=== PATIENT | female | born 1990 | race American Indian/Alaskan Native ===

== ENCOUNTER 2018-11-20 14:18 | Observation (INO) | payer OTHER ==
[2018-11-20 15:37] LABS: Eosinophils % (Auto) 0.3 % (0.0-4.3); Monocytes % (Auto) 6.7 % (0.0-7.3)
--- NOTE | 2018-11-20 15:40 | Emergency Department Report ---
ED General Adult HPI - General Chief complaint: Syncope Stated complaint: WEAKNESS/VOMITING Time Seen by Provider: 11/20/18 15:23 Source: patient, RN notes reviewed Mode of arrival: Stretcher Limitations: No Limitations - History of Present Illness Initial comments: This is a 28-year-old female who is not known to this provider previously. The patient does not have a local primary care doctor or local quality nurse. The patient presents to the emergency room today with a complaint of lightheadedness, dizziness, fatigue, malaise, chills, shortness of breath. Symptoms constant, worse with physical exertion, decreased with rest, they're painless, and they do not radiate anywhere. Patient reports typical heavy menstruation at baseline, and reports her most recent menstruation terminated within the past 48 hours. She does not have a private quality nurse currently. She denies hematemesis, bright red blood per rectum. She denies DVT, pulmonary embolus risk factors. -: Gradual Severity scale (0 -10): 0 Consistency: intermittent Improves with: rest Worsens with: movement Associated Symptoms: loss of appetite, malaise, shortness of breath, weakness - Related Data Allergies Allergy/AdvReac Type Severity Reaction Status Date / Time No Known Allergies Allergy Unverified 11/20/18 14:38 ED Review of Systems ROS: Stated complaint: WEAKNESS/VOMITING Other details as noted in HPI Constitutional: malaise, weakness Eyes: denies: eye discharge ENT: denies: epistaxis Respiratory: shortness of breath Cardiovascular: other (near syncope) Gastrointestinal: denies: hematemesis, melena, hematochezia Genitourinary: abnormal menses Musculoskeletal: denies: back pain Neurological: weakness Psychiatric: anxiety ED Past Medical Hx - Past Medical History Previous Medical History?: No - Surgical History Past Surgical History?: No - Social History Smoking Status: Never Smoker Substance Use Type: None ED Physical Exam - General Limitations: No Limitations General appearance: alert, in no apparent distress - Head Head exam: Present: atraumatic, normocephalic - Eye Eye exam: Present: normal appearance, EOMI. Absent: nystagmus - ENT ENT exam: Present: normal exam, normal orophraynx, mucous membranes moist, normal external ear exam - Neck Neck exam: Present: normal inspection, full ROM. Absent: tenderness, meningismus - Respiratory Respiratory exam: Present: normal lung sounds bilaterally. Absent: respiratory distress - Cardiovascular Cardiovascular Exam: Present: regular rate, normal rhythm, tachycardia, normal heart sounds. Absent: bradycardia, irregular rhythm, systolic murmur, diastolic murmur, rubs, gallop - GI/Abdominal GI/Abdominal exam: Present: soft. Absent: distended, tenderness, guarding, rebound, rigid, pulsatile mass - Extremities Exam Extremities exam: Present: normal inspection, full ROM, other (2+ pulses noted in the bilateral upper, lower extremities. Compartments soft. No long bony tenderness. The pelvis is stable.). Absent: pedal edema, calf tenderness - Back Exam Back exam: Present: normal inspection, full ROM. Absent: tenderness, CVA tenderness (R), paraspinal tenderness, vertebral tenderness - Neurological Exam Neurological exam: Present: alert, oriented X3, CN II-XII intact, other (Extraocular movements intact. Tongue midline. No facial droop. Facial se nsation intact to light touch in the V1, V2, V3 distribution bilaterally. 5 and 5 strength in 4 extremities.. Sensation is intact to light touch in 4 extremities.). Absent: motor sensory deficit - Psychiatric Psychiatric exam: Present: normal affect, normal mood - Skin Skin exam: Present: warm, pallor ED Course Vital Signs 11/20/18 11/20/18 14:23 15:50 Temperature 98.7 F Pulse Rate 108 H Respiratory 16 20 Rate Blood Pressure 122/95 [Left] O2 Sat by Pulse 100 100 Oximetry - Reevaluation(s) Reevaluation #1: 11/20/18 18:51 Change in plans. patient started to have vaginal bleeding after her ultrasound. Dr Melgoza advises gynecologic admission. Recontact the quality nurse employee communications coordinator, Dr. Garcia, who will admit the patient ED Medical Decision Making - Lab Data Result diagrams: 11/20/18 14:50 11/20/18 14:50 Vital Signs 11/20/18 11/20/18 14:23 15:50 Temperature 98.7 F Pulse Rate 108 H Respiratory 16 20 Rate Blood Pressure 122/95 [Left] O2 Sat by Pulse 100 100 Oximetry Vital Signs 11/20/18 11/20/18 14:23 15:50 Temperature 98.7 F Pulse Rate 108 H Respiratory 16 20 Rate Blood Pressure 122/95 [Left] O2 Sat by Pulse 100 100 Oximetry Lab Results 11/20/18 11/20/18 11/20/18 Range/Units 14:50 14:50 14:50 WBC 12.1 H (4.5-11.0) K/mm3 RBC 3.20 L (3.65-5.03) M/mm3 Hgb 3.9 L* (10.1-14.3) gm/dl Hct 15.2 L* (30.3-42.9) % MCV < 50 L (79-97) fl MCH 12 L (28-32) pg MCHC 25 L (30-34) % RDW 24.3 H (13.2-15.2) % Plt Count 282 (140-440) K/mm3 [place] % (Auto) 6.7 (0.0-7.3) % Eos % (Auto) 0.3 (0.0-4.3) % Eos # 0.0 (0.0-0.4) K/mm3 Add Manual Diff Complete Total Counted 100 Seg Neutrophils % 82.3 H (40.0-70.0) % Seg Neuts % (Manual) 88.0 H (40.0-70.0) % Band Neutrophils % 0 % Lymphocytes % (Manual) 4.0 L (13.4-35.0) % Reactive Lymphs % (Man) 0 % Monocytes % (Manual) 6.0 (0.0-7.3) % Eosinophils % (Manual) 1.0 (0.0-4.3) % Basophils % (Manual) 1.0 (0.0-1.8) % Metamyelocytes % 0 % Myelocytes % 0 % Promyelocytes % 0 % Blast Cells % 0 % Nucleated RBC % 1.0 H (0.0-0.9) % Seg Neutrophils # 9.9 H (1.8-7.7) K/mm3 Seg Neutrophils # Man 10.6 H (1.8-7.7) K/mm3 Band Neutrophils # 0.0 K/mm3 Lymphocytes # (Manual) 0.5 L (1.2-5.4) K/mm3 Abs React Lymphs (Man) 0.0 K/mm3 Monocytes # (Manual) 0.7 (0.0-0.8) K/mm3 Eosinophils # (Manual) 0.1 (0.0-0.4) K/mm3 Basophils # (Manual) 0.1 (0.0-0.1) K/mm3 Metamyelocytes # 0.0 K/mm3 Myelocytes # 0.0 K/mm3 Promyelocytes # 0.0 K/mm3 Blast Cells # 0.0 K/mm3 WBC Morphology Not Reportable Hypersegmented Neuts Not Reportable Hyposegmented Neuts Not Reportable Hypogranular Neuts Not Reportable Smudge Cells Not Reportable Toxic Granulation Not Reportable Toxic Vacuolation Not Reportable Dohle Bodies Not Reportable Pelger-Huet Anomaly Not Reportable Dao Rods Not Reportable Platelet Estimate Appears normal Clumped Platelets Not Reportable Plt Clumps, EDTA Not Reportable Large Platelets Few Giant Platelets Few Platelet Satelliting Not Reportable Plt Morphology Comment Not Reportable RBC Morphology Not Reportable Dimorphic RBCs Not Reportable Polychromasia 1+ Hypochromasia 3+ Poikilocytosis 1+ Anisocytosis 2+ Microcytosis 3+ Macrocytosis Not Reportable Spherocytes Not Reportable Pappenheimer Bodies Not Reportable Sickle Cells Not Reportable Target Cells Not Reportable Tear Drop Cells Not Reportable Ovalocytes Few Helmet Cells Not Reportable [place] Bodies Not Reportable [place] Rings Not Reportable [place] Cells Not Reportable Bite Cells Not Reportable Crenated Cell Not Reportable Elliptocytes Not Reportable Acanthocytes (Spur) Not Reportable Rouleaux Not Reportable Hemoglobin C Crystals Not Reportable Schistocytes Not Reportable Malaria parasites Not Reportable Balbir Bodies Not Reportable Hem Pathologist Commnt No Sodium 142 (137-145) mmol/L Potassium 4.1 (3.6-5.0) mmol/L Chloride 104.0 (98-107) mmol/L Carbon Dioxide 24 (22-30) mmol/L Anion Gap 18 mmol/L BUN 12 (7-17) mg/dL Creatinine 0.7 (0.7-1.2) mg/dL Estimated GFR > 60 ml/min BUN/Creatinine Ratio 17 % Glucose 113 H (65-100) mg/dL Calcium 9.0 (8.4-10.2) mg/dL Magnesium (1.7-2.3) mg/dL Total Creatine Kinase (30-135) units/L HCG, Qual (Negative) Blood Type O POSITIVE Antibody Screen Negative Crossmatch See Detail 11/20/18 11/20/18 Range/Units 14:50 16:01 WBC (4.5-11.0) K/mm3 RBC (3.65-5.03) M/mm3 Hgb (10.1-14.3) gm/dl Hct (30.3-42.9) % MCV (79-97) fl MCH (28-32) pg MCHC (30-34) % RDW (13.2-15.2) % Plt Count (140-440) K/mm3 [place] % (Auto) (0.0-7.3) % Eos % (Auto) (0.0-4.3) % Eos # (0.0-0.4) K/mm3 Add Manual Diff Total Counted Seg Neutrophils % (40.0-70.0) % Seg Neuts % (Manual) (40.0-70.0) % Band Neutrophils % % Lymphocytes % (Manual) (13.4-35.0) % Reactive Lymphs % (Man) % Monocytes % (Manual) (0.0-7.3) % Eosinophils % (Manual) (0.0-4.3) % Basophils % (Manual) (0.0-1.8) % Metamyelocytes % % Myelocytes % % Promyelocytes % % Blast Cells % % Nucleated RBC % (0.0-0.9) % Seg Neutrophils # (1.8-7.7) K/mm3 Seg Neutrophils # Man (1.8-7.7) K/mm3 Band Neutrophils # K/mm3 Lymphocytes # (Manual) (1.2-5.4) K/mm3 Abs React Lymphs (Man) K/mm3 Monocytes # (Manual) (0.0-0.8) K/mm3 Eosinophils # (Manual) (0.0-0.4) K/mm3 Basophils # (Manual) (0.0-0.1) K/mm3 Metamyelocytes # K/mm3 Myelocytes # K/mm3 Promyelocytes # K/mm3 Blast Cells # K/mm3 WBC Morphology Hypersegmented Neuts Hyposegmented Neuts Hypogranular Neuts Smudge Cells Toxic Granulation Toxic Vacuolation Dohle Bodies Pelger-Huet Anomaly Dao Rods Platelet Estimate Clumped Platelets Plt Clumps, EDTA Large Platelets Giant Platelets Platelet Satelliting Plt Morphology Comment RBC Morphology Dimorphic RBCs Polychromasia Hypochromasia Poikilocytosis Anisocytosis Microcytosis Macrocytosis Spherocytes Pappenheimer Bodies Sickle Cells Target Cells Tear Drop Cells Ovalocytes Helmet Cells [place] Bodies [place] Rings Fannie Cells Bite Cells Crenated Cell Elliptocytes Acanthocytes (Spur) Rouleaux Hemoglobin C Crystals Schistocytes Malaria parasites Balbir Bodies Hem Pathologist Commnt Sodium (137-145) mmol/L Potassium (3.6-5.0) mmol/L Chloride (98-107) mmol/L Carbon Dioxide (22-30) mmol/L Anion Gap mmol/L BUN (7-17) mg/dL Creatinine (0.7-1.2) mg/dL Estimated GFR ml/min BUN/Creatinine Ratio % Glucose (65-100) mg/dL Calcium (8.4-10.2) mg/dL Magnesium 2.20 (1.7-2.3) mg/dL Total Creatine Kinase 65 (30-135) units/L HCG, Qual Negative (Negative) Blood Type Antibody Screen Crossmatch - EKG Data Rate: tachycardia - EKG Data When compared to previous EKG there are: previous EKG unavailable - Radiology Data Radiology results: pending - Medical Decision Making Differential diagnosis, including not limited to: Symptomatic anemia, menorrhagia, Assessment and plan: 28-year-old female with symptomatically anemia, likely secondary to vaginal bleeding, now resolved. Patient is afebrile but tachycardic. She is hemodynamically stable. She is amenable to packed red blood cell transfusion. Case discussed with gynecology on-call, Dr Garcia, who recommended packed red blood cell transfusion, and indicated no need to admit to gynecologic service, but indicated that medical service would be suitable to admit the patient, and that her group could follow in consultation if necessary. Discussed this with the patient to verbalize understanding. The Hospital physician, Dr. Melgoza is going to admit the patient Critical Care Time: Yes Critical care time in (mins) excluding proc time.: 35 Critical care attestation.: If time is entered above; I have spent that time in minutes in the direct care of this critically ill patient, excluding procedure time. ED Disposition Clinical Impression: Symptomatic anemia Disposition: OP ADMIT IP TO THIS HOSP Is pt being admited?: Yes Does the pt Need Aspirin: No Condition: Good [facility] [Primary Care Provider] - 3-5 Days
[2018-11-20 15:52] LABS: BUN/Creatinine Ratio 17; Blood Urea Nitrogen 12 mg/dL (7-17); Hemolysis Index 3
[2018-11-20 15:53] LABS: Hematocrit 15.2 % (30.3-42.9); Hemoglobin 3.9 gm/dl (10.1-14.3); Mean Corpuscular HGB Conc 25 % (30-34); Mean Corpuscular Volume < 50 fl (79-97)
[2018-11-20 15:54] LABS: Platelet Count 282 K/mm3 (140-440); Red Cell Distribution Width 24.3 % (13.2-15.2)
[2018-11-20] MEDS ORDERED: NACL 0.9% 500 ML 500 ML IV ONE (16:02)
[2018-11-20] MEDS ORDERED: NACL 0.9% 1000 ML 1,000 ML IV ONE (16:34)
[2018-11-20 16:55] LABS: Total Cells Counted 100
[2018-11-20 16:56] LABS: Anisocytosis 2+; Poikilocytosis 1+
[2018-11-20 16:57] LABS: Hypochromasia 3+; Large Platelets Few
[2018-11-20 16:58] LABS: Giant Platelets Few; Ovalocytes Few
--- NOTE | 2018-11-20 19:52 | Ultrasound Report ---
PROCEDURE: US TRANSVAGINAL HISTORY: vaginal bleeding FINDINGS: Real-time ultrasound of the pelvis was performed by transabdominal and endovaginal techniqu e. The uterus measures 10.3 x 4.7 x 5.0 cm. The endometrial stripe measures 1.7 cm which is mildly thick ened. The right ovary measures 4.6 x 2.6 x 2.1 cm and contains a cyst measuring 4.3 x 4.1 x 4.9 cm. The left ovary measures 4.6 x 1.8 x 3.3 cm and contains a cyst measuring 2.5 x 1.8 x 1.3 cm. There is no evidence of ovarian torsion. IMPRESSION: Bilateral ovarian cysts, likely physiologic No evidence of ovarian torsion Thickened endometrial stripe This document is electronically signed by Simone Cordova MD., November 20 2018 07:49:58 PM ET
--- NOTE | 2018-11-20 19:52 | Ultrasound Report ---
PROCEDURE: US PELVIS DUPLEX DOPPLER COMP HISTORY: vaginal bleeding FINDINGS: Real-time ultrasound of the pelvis was performed by transabdominal and endovaginal techniqu e. The uterus measures 10.3 x 4.7 x 5.0 cm. The endometrial stripe measures 1.7 cm which is mildly thick ened. The right ovary measures 4.6 x 2.6 x 2.1 cm and contains a cyst measuring 4.3 x 4.1 x 4.9 cm. The left ovary measures 4.6 x 1.8 x 3.3 cm and contains a cyst measuring 2.5 x 1.8 x 1.3 cm. There is no evidence of ovarian torsion. IMPRESSION: Bilateral ovarian cysts, likely physiologic No evidence of ovarian torsion Thickened endometrial stripe This document is electronically signed by Simone Cordova MD., November 20 2018 07:49:27 PM ET
[2018-11-20] MEDS ORDERED: TYLENOL PO PRN ×2 (22:29→22:32)
[2018-11-20] MEDS ORDERED: LACTATED RINGERS 1,000 ML IV SCH (23:00)
--- NOTE | 2018-11-21 01:00 | History and Physical Report ---
History of Present Illness Date of examination: 11/21/18 Date of admission: 11/20/18 18:53 Chief complaint: Symptomatic anemia History of present illness: Patient is a 28 year old , LMP 3 weeks ago who presented to the ER complaining of having dizziness, SOB, weakness and tiredness for several weeks. She has a history of heavy periods with clots which last 5 days. She denied any weight loss, change in appetite or bowel habits. She denied any bleeding on admission. Her vitals sign showed tachycardia. H/H was 3.9/15. She was admitted to the medical service but she reported that she started to bleed mildly after the sonogram. The hospitalist transferred her to the gynecology service. She has not seen a electric range assembler for this problem. Past History Past Surgical History: no surgical history Social history: no significant social history Medications and Allergies Allergies Allergy/AdvReac Type Severity Reaction Status Date / Time No Known Allergies Allergy Verified 11/20/18 22:31 Active Meds: Active Medications Acetaminophen (Tylenol) 650 mg PO Q6H PRN PRN Reason: Pain, Mild (1-3) Lactated Ringer's (Lactated Ringers) 1,000 mls @ 125 mls/hr IV DIRECT RENAE - Vital Signs Vital signs: Vital Signs Temp Pulse Resp BP Pulse Ox 98.7 F 108 H 16 122/95 100 11/20/18 14:23 11/20/18 14:23 11/20/18 14:23 11/20/18 14:23 11/20/18 14:23 Temp Pulse Resp BP Pulse Ox 99.8 F H 94 H 18 121/56 100 11/21/18 00:11 11/21/18 00:11 11/21/18 00:11 11/21/18 00:11 11/21/18 00:11 - Physical Exam Cardiovascular: Normal S1, Normal S2 Lungs: Positive: Clear to auscultation Vulva: both: normal Vagina: Positive: other (Mild bleeding, no lesion.) Cervix: Positive: other (Mild bleeding from the os, no gross lesion.) Adnexa: both: normal Deep Tendon Reflex Grade: Normal +2 Results Result Diagrams: 11/21/18 01:54 11/20/18 14:50 Abnormal lab results 03/01/19 03/01/19 03/01/19 Range/Units 14:50 14:50 14:50 WBC 12.1 H (4.5-11.0) K/mm3 RBC 3.20 L (3.65-5.03) M/mm3 Hgb 3.9 L* (10.1-14.3) gm/dl Hct 15.2 L* (30.3-42.9) % MCV < 50 L (79-97) fl MCH 12 L (28-32) pg MCHC 25 L (30-34) % RDW 24.3 H (13.2-15.2) % Seg Neutrophils % 82.3 H (40.0-70.0) % Seg Neuts % (Manual) 88.0 H (40.0-70.0) % Lymphocytes % (Manual) 4.0 L (13.4-35.0) % Nucleated RBC % 1.0 H (0.0-0.9) % Seg Neutrophils # 9.9 H (1.8-7.7) K/mm3 Seg Neutrophils # Man 10.6 H (1.8-7.7) K/mm3 Lymphocytes # (Manual) 0.5 L (1.2-5.4) K/mm3 Glucose 113 H (65-100) mg/dL Crossmatch See Detail All other labs normal. Assessment and Plan - Patient Problems (1) Symptomatic anemia Current Visit: Yes Status: Acute Plan to address problem: Will transfuse 2 PRBCs to bring H/H to a stable level. F/U H/H 3 hrs after last unit. (2) Menometrorrhagia Current Visit: Yes Status: Acute Plan to address problem: The bleeding is very mild at this time. Thickened endometrium on sonogram. I told her that endometrial pathology must be ruled out. Once her Hb is stable, she will be discharged with instructions to follow with a state attorney for hysterscopy/D&C. (3) Morbid obesity Current Visit: Yes Status: Acute
[2018-11-21 02:08] LABS: Mean Corpuscular HGB Conc 29 % (30-34); Platelet Count 210 K/mm3 (140-440); Red Blood Count 3.37 M/mm3 (3.65-5.03)
[2018-11-21 02:58] LABS: Mean Corpuscular Volume 57 fl (79-97); Red Cell Distribution Width > 40.0 % (13.2-15.2)
[2018-11-21 02:59] LABS: Hematocrit 19.2 % (30.3-42.9); Hemoglobin 5.5 gm/dl (10.1-14.3)
[2018-11-21] MEDS ORDERED: NACL 0.9% 500 ML 500 ML IV ONE ×2 (03:37→03:42)
--- NOTE | 2018-11-21 04:34 | Event Note ---
Date: 11/21/18 Patient recieved 2 units of PRBSs. Her current H/H: 5.5/.2. Will transfuse 1 FFP and 2 more units of PRBCs.
[2018-11-21] MEDS ORDERED: NACL 0.9% 250ML 250 ML ONE (11:20)
[2018-11-22 00:28] LABS: Hematocrit 25.9 % (30.3-42.9); Mean Corpuscular HGB Conc 31 % (30-34); Red Blood Count 4.08 M/mm3 (3.65-5.03)
[2018-11-22 00:33] LABS: Mean Corpuscular Volume 64 fl (79-97)
[2018-11-22 00:34] LABS: Platelet Count 198 K/mm3 (140-440)
--- NOTE | 2018-11-22 10:35 | Progress Note ---
Assessment and Plan - Patient Problems (1) Menometrorrhagia Onset Date: 11/22/18 Current Visit: Yes Status: Chronic (2) Morbid obesity Onset Date: 11/22/18 Current Visit: Yes Status: Chronic (3) Symptomatic anemia Onset Date: 11/22/18 Current Visit: Yes Status: Resolved Plan to address problem: A: Symptomatic anemia - resolved Menometrorrhagia - improved Obesity P: May go home today Follow up in the office to schedule a Hysteroscopy with D&C Subjective - Subjective Date of service: 11/22/18 Principal diagnosis: Symptomatic anemia; Menorrhagia Interval history: Pt is feeling much better this morning, and bleeding is minimal. Patient reports: appetite normal, voiding normally, pain well controlled, flatus, ambulating normally, no dizzy ambulation, no nauseated Objective - Vital Signs Latest vital signs: Vital Signs Temp Pulse Resp BP BP Pulse Ox 11/22/18 08:46 98.4 F 82 20 131/73 99 11/21/18 23:33 98.2 F 91 H 18 142/57 100 11/21/18 19:33 99.4 F 92 H 18 127/61 100 11/21/18 19:00 98.8 F 91 H 18 151/68 100 11/21/18 18:20 99.0 F 94 H 18 148/61 99 11/21/18 18:00 99.2 F 99 H 18 156/67 99 11/21/18 17:30 97 H 18 149/68 11/21/18 17:13 99.2 F 93 H 18 158/76 99 11/21/18 16:54 99.0 F 104 H 18 144/69 99 11/21/18 16:24 111 H 18 161/75 99 11/21/18 15:55 97 H 18 142/46 99 11/21/18 15:24 99.0 F 101 H 18 150/79 100 11/21/18 15:18 98.8 F 96 H 18 144/72 99 11/21/18 15:04 99.1 F 102 H 18 143/65 99 11/21/18 14:30 99.0 F 97 H 18 142/75 99 11/21/18 14:00 98.9 F 100 H 18 145/76 100 11/21/18 13:30 99.0 F 102 H 18 142/79 99 11/21/18 13:00 99.0 F 100 H 18 145/75 99 11/21/18 12:26 98.8 F 94 H 18 157/83 100 11/21/18 11:51 98.8 F 98 H 18 137/38 100 11/21/18 11:22 99.1 F 90 18 144/71 100 Intake and Output 11/21/18 11/22/18 11/22/18 22:59 06:59 14:59 Intake Total 490 360 360 Balance 490 360 360 Intake: Oral 240 360 Intake, Free Water 360 Blood Product 250 Leukoreduced Red Blood 0 Cells Unit [id number] Leukoreduced Red Blood 250 Cells Unit [id number] Other: Total, Intake Amount 240 240 Voiding Method Toilet # Voids Void 1 1 1 # Bowel Movements 1 - Exam Abdomen: Present: normal appearance, soft Uterus: Present: normal - Labs Labs: Abnormal lab results 11/20/18 11/22/18 Range/Units 14:50 00:09 Hgb 8.0 L (10.1-14.3) gm/dl Hct 25.9 L D (30.3-42.9) % MCV 64 L (79-97) fl MCH 20 L (28-32) pg Crossmatch See Detail Laboratory Tests 11/20/18 11/20/18 11/20/18 14:50 14:50 14:50 WBC 12.1 H RBC 3.20 L Hgb 3.9 L* Hct 15.2 L* MCV < 50 L MCH 12 L MCHC 25 L RDW 24.3 H Plt Count 282 [place] % (Auto) 6.7 Eos % (Auto) 0.3 Eos # 0.0 Add Manual Diff Complete Total Counted 100 Seg Neutrophils % 82.3 H Seg Neuts % (Manual) 88.0 H Band Neutrophils % 0 Lymphocytes % (Manual) 4.0 L Reactive Lymphs % (Man) 0 Monocytes % (Manual) 6.0 Eosinophils % (Manual) 1.0 Basophils % (Manual) 1.0 Metamyelocytes % 0 Myelocytes % 0 Promyelocytes % 0 Blast Cells % 0 Nucleated RBC % 1.0 H Seg Neutrophils # 9.9 H Seg Neutrophils # Man 10.6 H Band Neutrophils # 0.0 Lymphocytes # (Manual) 0.5 L Abs React Lymphs (Man) 0.0 Monocytes # (Manual) 0.7 Eosinophils # (Manual) 0.1 Basophils # (Manual) 0.1 Metamyelocytes # 0.0 Myelocytes # 0.0 Promyelocytes # 0.0 Blast Cells # 0.0 WBC Morphology Not Reportable Hypersegmented Neuts Not Reportable Hyposegmented Neuts Not Reportable Hypogranular Neuts Not Reportable Smudge Cells Not Reportable Toxic Granulation Not Reportable Toxic Vacuolation Not Reportable Dohle Bodies Not Reportable Pelger-Huet Anomaly Not Reportable Dao Rods Not Reportable Platelet Estimate Appears normal Clumped Platelets Not Reportable Plt Clumps, EDTA Not Reportable Large Platelets Few Giant Platelets Few Platelet Satelliting Not Reportable Plt Morphology Comment Not Reportable RBC Morphology Not Reportable Dimorphic RBCs Not Reportable Polychromasia 1+ Hypochromasia 3+ Poikilocytosis 1+ Anisocytosis 2+ Microcytosis 3+ Macrocytosis Not Reportable Spherocytes Not Reportable Pappenheimer Bodies Not Reportable Sickle Cells Not Reportable Target Cells Not Reportable Tear Drop Cells Not Reportable Ovalocytes Few Helmet Cells Not Reportable [place] Bodies Not Reportable [place] Rings Not Reportable [place] Cells Not Reportable Bite Cells Not Reportable Crenated Cell Not Reportable Elliptocytes Not Reportable Acanthocytes (Spur) Not Reportable Rouleaux Not Reportable Hemoglobin C Crystals Not Reportable Schistocytes Not Reportable Malaria parasites Not Reportable Balbir Bodies Not Reportable Hem Pathologist Commnt No Sodium 142 Potassium 4.1 Chloride 104.0 Carbon Dioxide 24 Anion Gap 18 BUN 12 Creatinine 0.7 Estimated GFR > 60 BUN/Creatinine Ratio 17 Glucose 113 H Calcium 9.0 Magnesium Total Creatine Kinase TSH Free T4 HCG, Qual Blood Type O POSITIVE Antibody Screen Negative Crossmatch See Detail 11/20/18 11/20/18 11/21/18 14:50 16:01 01:54 WBC 11.3 H RBC 3.37 L Hgb 5.5 L* Hct 19.2 L* MCV 57 L MCH 16 L MCHC 29 L RDW > 40.0 H Plt Count 210 [place] % (Auto) Eos % (Auto) Eos # Add Manual Diff Total Counted Seg Neutrophils % Seg Neuts % (Manual) Band Neutrophils % Lymphocytes % (Manual) Reactive Lymphs % (Man) Monocytes % (Manual) Eosinophils % (Manual) Basophils % (Manual) Metamyelocytes % Myelocytes % Promyelocytes % Blast Cells % Nucleated RBC % Seg Neutrophils # Seg Neutrophils # Man Band Neutrophils # Lymphocytes # (Manual) Abs React Lymphs (Man) Monocytes # (Manual) Eosinophils # (Manual) Basophils # (Manual) Metamyelocytes # Myelocytes # Promyelocytes # Blast Cells # WBC Morphology Hypersegmented Neuts Hyposegmented Neuts Hypogranular Neuts Smudge Cells Toxic Granulation Toxic Vacuolation Dohle Bodies Pelger-Huet Anomaly Dao Rods Platelet Estimate Clumped Platelets Plt Clumps, EDTA Large Platelets Giant Platelets Platelet Satelliting Plt Morphology Comment RBC Morphology Dimorphic RBCs Polychromasia Hypochromasia Poikilocytosis Anisocytosis Microcytosis Macrocytosis Spherocytes Pappenheimer Bodies Sickle Cells Target Cells Tear Drop Cells Ovalocytes Helmet Cells [place] Bodies [place] Rings [place] Cells Bite Cells Crenated Cell Elliptocytes Acanthocytes (Spur) Rouleaux Hemoglobin C Crystals Schistocytes Malaria parasites Balbir Bodies Hem Pathologist Commnt Sodium Potassium Chloride Carbon Dioxide Anion Gap BUN Creatinine Estimated GFR BUN/Creatinine Ratio Glucose Calcium Magnesium 2.20 Total Creatine Kinase 65 TSH Free T4 HCG, Qual Negative Blood Type Antibody Screen Crossmatch 11/21/18 11/21/18 11/22/18 01:54 01:54 00:09 WBC 10.9 RBC 4.08 Hgb 8.0 L Hct 25.9 L D MCV 64 L MCH 20 L MCHC 31 RDW Plt Count 198 [place] % (Auto) Eos % (Auto) Eos # Add Manual Diff Total Counted Seg Neutrophils % Seg Neuts % (Manual) Band Neutrophils % Lymphocytes % (Manual) Reactive Lymphs % (Man) Monocytes % (Manual) Eosinophils % (Manual) Basophils % (Manual) Metamyelocytes % Myelocytes % Promyelocytes % Blast Cells % Nucleated RBC % Seg Neutrophils # Seg Neutrophils # Man Band Neutrophils # Lymphocytes # (Manual) Abs React Lymphs (Man) Monocytes # (Manual) Eosinophils # (Manual) Basophils # (Manual) Metamyelocytes # Myelocytes # Promyelocytes # Blast Cells # WBC Morphology Hypersegmented Neuts Hyposegmented Neuts Hypogranular Neuts Smudge Cells Toxic Granulation Toxic Vacuolation Dohle Bodies Pelger-Huet Anomaly Dao Rods Platelet Estimate Clumped Platelets Plt Clumps, EDTA Large Platelets Giant Platelets Platelet Satelliting Plt Morphology Comment RBC Morphology Dimorphic RBCs Polychromasia Hypochromasia Poikilocytosis Anisocytosis Microcytosis Macrocytosis Spherocytes Pappenheimer Bodies Sickle Cells Target Cells Tear Drop Cells Ovalocytes Helmet Cells [place] Bodies [place] Rings [place] Cells Bite Cells Crenated Cell Elliptocytes Acanthocytes (Spur) Rouleaux Hemoglobin C Crystals Schistocytes Malaria parasites Balbir Bodies Hem Pathologist Commnt Sodium Potassium Chloride Carbon Dioxide Anion Gap BUN Creatinine Estimated GFR BUN/Creatinine Ratio Glucose Calcium Magnesium Total Creatine Kinase TSH 1.530 Free T4 1.00 HCG, Qual Blood Type Antibody Screen Crossmatch
--- NOTE | 2018-11-22 10:42 | Discharge Summary ---
Providers - Providers Date of Admission: 11/20/18 18:53 Date of discharge: 11/22/18 Attending physician: TERRI ALLEN MD 11/20/18 16:35 Consult to Physician [CONS] Urgent Comment: DR ALLEN NOTIFIED [id number] Consulting Provider: TERRI ALLEN Physician Instructions: Reason For Exam: bleeding [facility] Reason for admission: other (Symptomatic anemia - stable; Menometrorrhagia) Procedure: other (Blood transfusion) Other procedures: none complications: none Discharge diagnosis: other (Symptomatic anemia - resolved; Menometrorrhagia - improved) Hospital course: Patient is a 28 year old BF , LMP 3 weeks ago who presented to the ER complaining of having dizziness, SOB, weakness and tiredness for several weeks. She has a history of heavy periods with clots which last 5 days. She denied any weight loss, change in appetite or bowel habits. She denied any bleeding on admission. Her vitals sign showed tachycardia. H/H was 3.9/15.2 She was admitted to the medical service but she reported that she started to bleed mildly after the sonogram. The hospitalist transferred her to the gynecology service. She has not seen a band cutter for this problem. She received 4 units of blood and 1 unit of FFP and her H/H improved to 8.0/25.9 She is currently feeling much better, and her bleeding has resolved. She will therefore be discharged to home today with plans to follow up in the office for further evaluation and treatment - including a Hysteroscopy with D&C. Condition at discharge: Good Disposition: DC-01 TO HOME OR SELFCARE - Discharge Diagnoses (1) Menometrorrhagia Status: Chronic (2) Morbid obesity Status: Chronic (3) Symptomatic anemia Status: Resolved Plan - Discharge Medications Prescriptions: Ferrous Sulfate [Feosol 325 MG tab] 325 mg PO BID #60 tablet - Provider Discharge Summary Activity: routine, no sex for 6 weeks, no heavy lifting 4 weeks, no strenuous exercise Diet: routine Instructions: routine Additional instructions: [] Smoking cessation referral if applicable(refer to patient education folder for contact #) [] Refer to [facility] Booklet Call your doctor immediately for: * Fever > 100.5 * Heavy vaginal bleeding ( >1 pad per hour) * Severe persistent headache * Shortness of breath * Reddened, hot, painful area to leg or breast * Drainage or odor from incision. * Keep incision clean and dry at all times and follow doctor's instructions regarding bathing/showering - Follow up plan Follow up: MILES BAKER MD [Primary Care Provider] - 3-5 Days SANDRA TELLEZ MD [Staff Physician] - 7 Days
[2018-11-22 17:00] VITALS: BP 139/50
== END 2018-11-22 17:30 | disposition home or self-care (01) ==
LOC: ED 14:18 → OB 18:53
PROVIDERS: ADMIT Obstetrics & Gynecology; ATTEND Obstetrics & Gynecology
DX: D64.9 Anemia, unspecified (principal); N92.1 Excessive and frequent menstruation with irregular cycle; E66.01 Morbid (severe) obesity due to excess calories; R42 Dizziness and giddiness
CPT/HCPCS: 36415; 36430; 76830; 80048; 82550; 83735; 84439; 84443; 84703; 85007; 85025; 85027; 86850; 86900; 86901; 86920; 93005; 93010; 93975; 96360; 96361; 99291; G0378; J7030; J7040; J7050; J7120; P9016; P9017

== ENCOUNTER 2018-12-22 09:18 | Day surgery (SDC) | payer OTHER ==
[2018-12-21 09:45] LABS: Hematocrit 36.4 % (30.3-42.9); Hemoglobin 11.7 gm/dl (10.1-14.3); Mean Corpuscular HGB Conc 32 % (30-34); Mean Corpuscular Volume 71 fl (79-97); Red Blood Count 5.17 M/mm3 (3.65-5.03)
[2018-12-21 09:47] LABS: Red Cell Distribution Width 33.7 % (13.2-15.2)
--- NOTE | 2018-12-21 10:40 | Anesthesia Consultation ---
Anesthesia Consult and Med Hx - Airway Anesthetic Teeth Evaluation: Good ROM Head & Neck: Adequate Mental/Hyoid Distance: Adequate Mallampati Class: Class II Intubation Access Assessment: Good - Cardiac Exam Cardiac Exam: RRR - Pre-Operative Health Status ASA Pre-Surgery Classification: ASA3 Proposed Anesthetic Plan: General - Central Nervous System Hx Psychiatric Problems: No - Hematic Hx Anemia: Yes - Other Systems Hx Alcohol Use: Yes (Occas) Hx Cancer: No
[2018-12-21 11:01] LABS: Basophils % (Manual) 0 % (0.0-1.8); Eosinophils % (Manual) 0 % (0.0-4.3); Total Cells Counted 100
[2018-12-21 11:02] LABS: Platelet Count 176 K/mm3 (140-440); Platelet Estimate Consistent w Auto; Poikilocytosis Few
[~2018-12-22 09:18] MED LIST: LACTATED RINGERS 1,000 ML IV SCH
[2018-12-22] MEDS ORDERED: SUBLIMAZE ONE (09:26)
[2018-12-22] MEDS ORDERED: DIPRIVAN 10 MG/ML IV ONE (09:26)
[2018-12-22] MEDS ORDERED: XYLOCAINE MPF 2% ONE (09:26)
[2018-12-22] MEDS ORDERED: NARCAN 0.4 MG/1 ML IV PRN (10:04)
[2018-12-22] MEDS ORDERED: SUBLIMAZE IV PRN (10:04)
[2018-12-22] MEDS ORDERED: DEMEROL IV PRN (10:04)
[2018-12-22] MEDS ORDERED: ZOFRAN IV PRN (10:04)
[2018-12-22] MEDS ORDERED: SILVER NITRATE TP ONE (10:04)
[2018-12-22] MEDS ORDERED: DILAUDID IV PRN (10:04)
--- NOTE | 2018-12-22 10:04 | Anesthesia Day of Surgery ---
Anesthesia Day of Surgery - Day of Surgery Patient Examined: Yes Patient H&P Reviewed: Yes Patient is NPO: Yes Beta Blockers: No Cardiac Clearance: No Pulmonary Clearance: No
--- NOTE | 2018-12-22 10:53 | Short Stay Summary ---
Short Stay Documentation Date of service: 12/22/18 Narrative H&P: Pt is a 28yo BF G0 LMP 11/20/18 presents for hysteroscopy and D&C. She was recently hospitalized for symptomatic anemia, and was transfused 4 units of blood. A pelvic ultrasound showed an enlarged uterus measuring 10.3 x 4.7 x 5.0 cm with mildly thickened endometrium. - History Principal diagnosis: Menorrhagia H&P: obtained from office Past Medical History: other (morbid obesity) Past Surgical History: No surgical history Social history: no significant social history, single - Allergies and Medications Current Medications: Allergies No Known Allergies Allergy (Verified 12/18/18 10:00) Home Medications Medication Instructions Recorded Confirmed Last Taken Type Ferrous Sulfate [Feosol 325 MG tab] 325 mg PO BID #60 tablet 11/22/18 12/22/18 12/21/18 Rx Active Medications Fentanyl (Sublimaze) 50 mcg IV Q5MIN PRN PRN Reason: Pain , Severe (7-10) Stop: 12/22/18 20:00 Hydromorphone HCl (Dilaudid) 0.5 mg IV Q10MIN PRN PRN Reason: Pain , Severe (7-10) Stop: 12/22/18 20:00 Lactated Ringer's (Lactated Ringers) 1,000 mls @ 42 mls/hr IV DIRECT RENAE Meperidine HCl (Demerol) 25 mg IV ONCE PRN PRN Reason: Shivering Stop: 12/22/18 20:00 Naloxone HCl (Narcan 0.4 Mg/1 Ml) 0.1 mg IV Q2MIN PRN PRN Reason: Res Rate </= 8 or 02 SAT < 92% Ondansetron HCl (Zofran) 4 mg IV ONCE PRN PRN Reason: Nausea And Vomiting - Physical exam General appearance: no acute distress Integumentary: no rash HEENT: Atraumatic Lungs: Clear to auscultation Heart: Regular rate Gastrointestinal: normal Female Genitourinary: deferred Extremities: no ischemia, No edema Neurological: Normal gait, Normal speech - Brief post op/procedure progress note Date of procedure: 12/22/18 Pre-op diagnosis: Menometrorrhagia Post-op diagnosis: same Procedure: 1. Hysteroscopy 2. Dilatation and curettage Anesthesia: MAC Findings: An enlarged uterus with lush amounts of endometrial tissue, and multiple polyps. Surgeon: SANDRA TELLEZ Estimated blood loss: minimal Pathology: list (endometrial curettings) Specimen disposition: to lab Condition: stable - Hospital course Hospital course: Unremarkable. - Disposition Condition at discharge: Good Disposition: - TO HOME OR SELFCARE - Discharge Diagnoses (1) Menometrorrhagia Status: Chronic (2) Morbid obesity Status: Chronic Short Stay Discharge Plan Activity: no restrictions Diet: regular Follow up with: SANDRA TELLEZ MD [Staff Physician] - 14 Days Prescriptions: Ibuprofen [Motrin] 800 mg PO Q8HR PRN #30 tablet PRN Reason: Pain, Moderate (4-6) medroxyPROGESTERone ACETATE [Provera] 10 mg PO QDAY #21 tablet
[2018-12-22] MEDS ORDERED: ANCEF/STERILE WATER 2 GM/20 ML 2 GM/20 ML SYRINGE IV NR (11:00)
[2018-12-22] MEDS ORDERED: DECADRON ONE (11:46)
[2018-12-22] MEDS ORDERED: ZOFRAN ONE (11:46)
[2018-12-22] MEDS ORDERED: ROBINUL ONE (11:46)
[2018-12-22] MEDS ORDERED: NACL 0.9% IR ONE (11:51)
--- NOTE | 2018-12-22 11:57 | Operative Report ---
Operative Report Operative Report: PREOPERATIVE DIAGNOSIS: Menometrorrhagia POSTOPERATIVE DIAGNOSIS: Same OPERATIVE PROCEDURE: Dilatation and curettage. SURGEON: Surendra Tan MD ANESTHESIA: Gen. endotracheal intubation ANESTHESIOLOGIST: Dr. Simmons ESTIMATED BLOOD LOSS: 10 mL FINDINGS: A 10-12 week size uterus with endometrial cavity showing lush amounts of endometrial tissue and multiple polyps COMPLICATIONS: None COUNTS: Correct x3. PROCEDURE: After the patient was correctly identified as the patient, and after general anesthesia was administered, the patient was prepped and draped in the usual sterile fashion and placed in dorsal lithotomy position. First, the bladder was emptied using a straight catheter. Next, a speculum was placed in the vaginal vault and the anterior lip of the cervix was grasped using a single- tooth tenaculum. The uterus was sounded to 12 cm. The cervical os was sequentially dilated, and hysteroscope was introduced into the endometrial cavity. Visualization of endometrial cavity showed lush amounts of endometrial tissue and multiple polyps. The hysteroscope was then removed and sharp curettage was performed yielding copious amounts of endometrial and polyps which were sent to pathology. After all the endometrial tissue and polyps, the procedure was considered complete. All instruments were removed from the vagina. The patient tolerated the procedure well and was transferred to the recovery room in stable condition.
[2018-12-22 12:05] VITALS: BP 119/61
--- NOTE | 2018-12-22 13:48 | Post Anesthesia Evaluation ---
- Post Anesthesia Evaluation Patient Participated: Yes Airway Patent: Yes Stable Respiratory Function: Yes Nausea/Vomiting: No Temp > 96.8F: Yes Pain Manageable: Yes Adequeate Hydration: Yes Anesthesia Complications: No
== END 2018-12-22 12:58 | disposition home or self-care (01) ==
LOC: OR 09:18
PROVIDERS: ATTEND Obstetrics & Gynecology
DX: C54.1 Malignant neoplasm of endometrium (principal); N84.0 Polyp of corpus uteri; N92.1 Excessive and frequent menstruation with irregular cycle; D64.9 Anemia, unspecified; E66.01 Morbid (severe) obesity due to excess calories; Z79.899 Other long term (current) drug therapy; Z72.89 Other problems related to lifestyle; Z68.43 Body mass index [BMI] 50.0-59.9, adult
CPT/HCPCS: 36415; 58558; 84703; 85007; 85025; 88305; A4217; J1100; J2405; J2704; J3010; J7120